=== PATIENT | female | born 1980 | race Caucasian/White ===

== ENCOUNTER 2021-07-25 07:17 | Outpatient (CLI) | payer OTHER | END 2021-07-25 10:31 | disposition home or self-care (01) | LOC: TOM 07:17 | PROVIDERS: ATTEND Otolaryngology Otolaryngology/Facial Plastic Surgery | DX: J32.4 Chronic pansinusitis (principal) ==

== ENCOUNTER 2022-02-15 07:58 | Emergency (ER) | payer OTHER ==
[~2022-02-15] VITALS: Ht 160 cm; Wt 54.0 kg
[2022-02-15] MEDS ORDERED: FLONASE16 GM NS (08:04)
[2022-02-15] MEDS ORDERED: ZYRTEC10 MG PO (10:51)
[2022-02-15] MEDS ORDERED: SINUS RINSE ST1 EACH NASAL (10:51)
[2022-02-15] MEDS ORDERED: TUSSI PRES-B L480 ML PO (10:57)
== END 2022-02-15 10:59 | disposition home or self-care (01) ==
LOC: ER 07:58
DX: J06.9 Acute upper respiratory infection, unspecified (principal); J30.9 Allergic rhinitis, unspecified; Z20.822 Contact with and (suspected) exposure to COVID-19

== ENCOUNTER 2022-07-17 12:10 | Emergency (ER) | payer OTHER ==
[~2022-07-17] VITALS: Ht 160 cm; Wt 55.8 kg
[~2022-07-17 12:10] MED LIST: FLONASE16 GM NS; SINUS RINSE ST1 EACH NASAL; TUSSI PRES-B L480 ML PO; ZYRTEC10 MG PO
[2022-07-17] MEDS ORDERED: CLONAZEPAM0.5 MG PO (12:35)
[2022-07-17] MEDS ORDERED: FUSION PLUS CA1 EACH PO (12:35)
[2022-07-17] MEDS ORDERED: ACID REDUCER20 M1 PO (12:36)
[2022-07-17] MEDS ORDERED: ZOFRAN8 MG PO (15:50)
[2022-07-17] MEDS ORDERED: PEPCID AC20 MG PO (15:50)
== END 2022-07-17 16:05 | disposition home or self-care (01) ==
LOC: ER 12:10
DX: K29.70 Gastritis, unspecified, without bleeding (principal)